=== PATIENT | female | born 1945 ===

== ENCOUNTER 2024-07-18 07:30 | Inpatient (IN) | payer MEDICARE, OTHER ==
[~2024-07-18] VITALS: Ht 177.8 cm; Wt 87.5 kg
[2024-07-18 15:40] VITALS: BP 138/66
[2024-07-18 16:16] VITALS: BP 138/66
[2024-07-18 21:45] VITALS: BP 117/70; TEMP 98.3; O2SAT 95
[2024-07-19] MEDS ORDERED: ONDANSETRON HCL 4 MG TABLET PO PRN ×2 (01:30→04:15)
[2024-07-19] MEDS ORDERED: MAG HYDROX/AL HYDROX/SIMETH 30 ML LIQUID UDC PO PRN ×2 (01:30→02:30)
[2024-07-19] MEDS ORDERED: MELATONIN 3 MG TABLET PO PRN (01:30)
[2024-07-19] MEDS ORDERED: MAG355OR18 PO (02:26)
[2024-07-19] MEDS ORDERED: AMIO100T4 PO (02:27)
[2024-07-19] MEDS ORDERED: APIX5TAB PO (02:28)
[2024-07-19] MEDS ORDERED: DULO40CA2 PO (02:30)
[2024-07-19] MEDS ORDERED: FERR220S16 PO (02:31)
[2024-07-19] MEDS ORDERED: GABA300S PO (02:33)
[2024-07-19] MEDS ORDERED: MELA1TAB53 PO (02:34)
[2024-07-19] MEDS ORDERED: ONDA-104 PO (02:35)
[2024-07-19] MEDS ORDERED: PANT40TA49 PO (02:37)
[2024-07-19] MEDS ORDERED: PREG300C PO (02:39)
[2024-07-19] MEDS ORDERED: ROPI4TAB6 PO (02:40)
[2024-07-19] MEDS ORDERED: MAG HYDROX/AL HYDROX/SIMETH 30 ML LIQUID UDC PO SCH (04:15)
[2024-07-19] MEDS ORDERED: Medication Not On Formulary EA (Ferrous Sulfate 325 MG) PO SCH (06:00)
[2024-07-19] MEDS: PANTOPRAZOLE SODIUM 40 MG TABLET.DR PO SCH (06:38)
[2024-07-19 06:39] VITALS: BP 119/81; TEMP 97.8; O2SAT 94
[2024-07-19 07:36] LABS: BASOPHILS # (AUTO) 0.1 K/UL (0.0-0.2); BASOPHILS % (AUTO) 1.1 % (0.0-2.0); EOSINOPHILS # (AUTO) 0.1 K/uL (0.0-0.7); EOSINOPHILS % (AUTO) 2.5 % (0.0-7.0); HEMATOCRIT 36.4 % (31.2-41.9); HEMOGLOBIN 12.2 g/dL (10.9-14.3); LYMPHOCYTES # (AUTO) 1.1 K/uL (0.8-4.8); LYMPHOCYTES % (AUTO) 21.4 % (20.5-51.5); MEAN CORPUSCULAR HEMOGLOBIN 29.5 uug (24.7-32.8); MEAN CORPUSCULAR HGB CONC 33 g/dL (32.3-35.6); MEAN CORPUSCULAR VOLUME 88.2 fL (75.5-95.3); MONOCYTES # (AUTO) 0.6 K/uL (0.1-1.30); MONOCYTES % (AUTO) 13.1 % (0.0-11.0); NEUTROPHILS # (AUTO) 3.1 K/uL (1.8-8.9); NEUTROPHILS % (AUTO) 61.9 % (38.5-71.5); PLATELET COUNT (AUTO) 142 K/uL (179-408); RED BLOOD CELL COUNT(AUTO) 4.13 MIL/uL (3.63-4.92); RED CELL DISTRIBUTION WIDTH 16.7 % (12.3-17.7)
[2024-07-19 07:50] LABS: DIFFERENTIAL COMMENT 1
[2024-07-19 07:58] LABS: ALANINE AMINOTRANSFERASE 10 U/L (14-59); ALKALINE PHOSPHATASE 113 U/L (50-136); ASPARTATE AMINOTRANSFERASE 5 U/L (15-37); BILIRUBIN,DIRECT 0.1 mg/dL (0.0-0.2); BILIRUBIN,TOTAL 0.5 mg/dL (0.2-1.0); CARBON DIOXIDE 29 mmol/L (21-32); CHLORIDE 107 mmol/L (98-107); CREATININE 1.1 mg/dL (0.6-1.3); GLUCOSE 104 mg/dL (74-106); MAGNESIUM 2.2 mg/dL (1.8-2.4); PHOSPHOROUS 4.1 mg/dL (2.5-4.9); POTASSIUM 4.9 mmol/L (3.5-5.1); SODIUM SERUM 144 mmol/L (136-145); TOTAL PROTEIN, SERUM 6.5 g/dL (6.4-8.2); UREA NITROGEN, BLOOD 16 mg/dL (7-18)
[2024-07-19 08:06] LABS: CALCIUM 9.1 mg/dL (8.5-10.1)
[2024-07-19 08:17] VITALS: BP 105/58; TEMP 97.6; O2SAT 97
[2024-07-19] MEDS ORDERED: PANTOPRAZOLE SODIUM 40 MG TABLET.DR PO SCH (09:00)
[2024-07-19] MEDS ORDERED: DULOXETINE HCL 90 MG PO SCH (09:00)
[2024-07-19] MEDS ORDERED: ROPINIROLE HCL 4 MG PO SCH (09:00)
[2024-07-19] MEDS ORDERED: ropiniROLE 1 MG TABLET PO SCH ×3 (09:00)
[2024-07-19] MEDS ORDERED: APIXABAN 5 MG TABLET PO SCH (09:00)
[2024-07-19] MEDS: DULOXETINE 30 MG CAPSULE.DR PO SCH (09:10)
[2024-07-19] MEDS: PREGABALIN 100 MG CAPSULE PO SCH (09:13)
[2024-07-19] MEDS: AMIODARONE HCL 200 MG TABLET PO SCH (09:13)
[2024-07-19] MEDS: APIXABAN 2.5 MG TABLET PO SCH (09:17)
[2024-07-19] MEDS ORDERED: TAPE50TA2 PO (09:44)
[2024-07-19] MEDS ORDERED: ROPI1TAB6 PO (09:44)
[2024-07-19] MEDS ORDERED: METO-356 PO (09:44)
[2024-07-19] MEDS ORDERED: MULT-594 PO (09:44)
[2024-07-19] MEDS ORDERED: MODA200T44 PO (09:44)
[2024-07-19] MEDS: ropiniROLE 1 MG TABLET PO SCH ×2 (10:12→21:24)
[2024-07-19 16:16] VITALS: BP 131/86; TEMP 97.6; O2SAT 98
[2024-07-19] MEDS ORDERED: Medication Not On Formulary EA (Melatonin 1 TAB) PO SCH (18:00)
[2024-07-19 21:00] VITALS: BP 134/66; TEMP 97.8; O2SAT 95
[2024-07-19] MEDS ORDERED: PREGABALIN 100 MG CAPSULE PO SCH (21:00)
[2024-07-19] MEDS ORDERED: GABAPENTIN 100 MG CAPSULE PO SCH (21:00)
[2024-07-19] MEDS: FERROUS SULFATE 325 MG TABEC PO SCH (21:24)
[2024-07-19] MEDS: GABAPENTIN 100 MG CAPSULE PO SCH (21:25)
[2024-07-20 06:56] VITALS: BP 136/67; TEMP 97.5; O2SAT 96
[2024-07-20 08:00] VITALS: BP 106/63; TEMP 97.7; O2SAT 96
[2024-07-20] MEDS ORDERED: ropiniROLE 1 MG TABLET PO SCH (09:00)
[2024-07-20 15:55] VITALS: BP 107/64; TEMP 97.2; O2SAT 97
[2024-07-20] MEDS: HYDROCODONE/APAP 5-325MG TABLET PO PRN (17:21)
[2024-07-20 21:00] VITALS: BP 120/67; TEMP 97.4; O2SAT 96
[2024-07-21 06:43] VITALS: BP 116/77; TEMP 97.5; O2SAT 96
[2024-07-21 08:00] VITALS: BP 117/62; TEMP 97.7; O2SAT 96
[2024-07-21 16:00] VITALS: BP 128/80; TEMP 97.9; O2SAT 96
[2024-07-21 20:36] VITALS: BP 111/66; TEMP 97.5; O2SAT 95
[2024-07-22 05:49] VITALS: BP 142/82; TEMP 97.8; O2SAT 98
[2024-07-22 09:00] VITALS: BP 136/70; TEMP 97.7
[2024-07-22] MEDS ORDERED: CYAN100096 PO (12:08)
[2024-07-22 18:12] VITALS: BP 106/58; TEMP 98.1; O2SAT 98
[2024-07-22 20:00] VITALS: BP 124/75; TEMP 97.7; O2SAT 95
[2024-07-23 05:38] VITALS: BP 114/52; TEMP 97.9; O2SAT 95
[2024-07-23 08:00] VITALS: BP 116/71; TEMP 98; O2SAT 95
[2024-07-23] MEDS: CYANOCOBALAMIN 1,000 MCG TABLET PO SCH (08:34)
[2024-07-23] MEDS: MULTIVITAMINS,THERAPEUTIC TABLET PO SCH (08:34)
[2024-07-23] MEDS: METOPROLOL SUCCINATE XL 25 MG TAB.SR.24H PO SCH (08:39)
[2024-07-23] MEDS: MODAFINIL 100 MG TABLET PO SCH (08:39)
[2024-07-23 21:19] VITALS: BP 110/69; TEMP 98.1; O2SAT 96
[2024-07-24 07:16] VITALS: BP 117/69; TEMP 97.8; O2SAT 98
[2024-07-24 16:00] VITALS: BP 114/59; TEMP 97.9; O2SAT 97
[2024-07-24 20:00] VITALS: BP 105/60; TEMP 98; O2SAT 95
[2024-07-25 05:00] VITALS: BP 149/80; TEMP 97.9; O2SAT 98
[2024-07-25 08:40] VITALS: BP 104/64; TEMP 97.2
[2024-07-25] MEDS: DOCUSATE SODIUM 100 MG CAPSULE PO SCH (10:05)
[2024-07-25 15:26] VITALS: BP 140/77; TEMP 98.1; O2SAT 98
[2024-07-25 20:05] VITALS: BP 111/59; TEMP 97.3; O2SAT 95
[2024-07-26 05:22] VITALS: BP 117/69; TEMP 97.9; O2SAT 95
[2024-07-26 07:08] LABS: BASOPHILS # (AUTO) 0.1 K/UL (0.0-0.2); BASOPHILS % (AUTO) 1.2 % (0.0-2.0); EOSINOPHILS # (AUTO) 0.1 K/uL (0.0-0.7); EOSINOPHILS % (AUTO) 2.2 % (0.0-7.0); HEMATOCRIT 36.2 % (31.2-41.9); HEMOGLOBIN 12.1 g/dL (10.9-14.3); LYMPHOCYTES % (AUTO) 23.5 % (20.5-51.5); MEAN CORPUSCULAR HEMOGLOBIN 29.4 uug (24.7-32.8); MEAN CORPUSCULAR HGB CONC 33 g/dL (32.3-35.6); MEAN CORPUSCULAR VOLUME 87.9 fL (75.5-95.3); MONOCYTES # (AUTO) 0.4 K/uL (0.1-1.30); MONOCYTES % (AUTO) 9.3 % (0.0-11.0); NEUTROPHILS # (AUTO) 2.8 K/uL (1.8-8.9); NEUTROPHILS % (AUTO) 63.8 % (38.5-71.5); PLATELET COUNT (AUTO) 151 K/uL (179-408); RED BLOOD CELL COUNT(AUTO) 4.11 MIL/uL (3.63-4.92); RED CELL DISTRIBUTION WIDTH 16.1 % (12.3-17.7); WHITE BLOOD COUNT (AUTO) 4.4 K/uL (3.8-11.8)
[2024-07-26 07:15] LABS: DIFFERENTIAL COMMENT 1
[2024-07-26 07:18] LABS: CALCIUM 8.8 mg/dL (8.5-10.1); CARBON DIOXIDE 32 mmol/L (21-32); CHLORIDE 108 mmol/L (98-107); CREATININE 1.1 mg/dL (0.6-1.3); GLUCOSE 98 mg/dL (74-106); POTASSIUM 4.3 mmol/L (3.5-5.1); SODIUM SERUM 144 mmol/L (136-145); UREA NITROGEN, BLOOD 17 mg/dL (7-18)
[2024-07-26 08:27] VITALS: BP 117/70; TEMP 97.8; O2SAT 96
[2024-07-26 18:50] VITALS: BP 111/52; TEMP 97.7; O2SAT 95
[2024-07-26 20:10] VITALS: BP 151/76; TEMP 97.1; O2SAT 96
[2024-07-27 05:04] VITALS: BP 107/62; TEMP 97.4; O2SAT 97
[2024-07-27 08:49] VITALS: BP 131/83; TEMP 97.5; O2SAT 99
[2024-07-27 09:36] LABS: BASOPHILS # (AUTO) 0.1 K/UL (0.0-0.2); BASOPHILS % (AUTO) 1.1 % (0.0-2.0); EOSINOPHILS # (AUTO) 0.1 K/uL (0.0-0.7); EOSINOPHILS % (AUTO) 1.9 % (0.0-7.0); HEMATOCRIT 38.2 % (31.2-41.9); HEMOGLOBIN 12.4 g/dL (10.9-14.3); LYMPHOCYTES # (AUTO) 1.4 K/uL (0.8-4.8); LYMPHOCYTES % (AUTO) 22.3 % (20.5-51.5); MEAN CORPUSCULAR HEMOGLOBIN 28.8 uug (24.7-32.8); MEAN CORPUSCULAR HGB CONC 33 g/dL (32.3-35.6); MEAN CORPUSCULAR VOLUME 88.9 fL (75.5-95.3); MONOCYTES # (AUTO) 0.5 K/uL (0.1-1.30); MONOCYTES % (AUTO) 7.9 % (0.0-11.0); NEUTROPHILS % (AUTO) 66.8 % (38.5-71.5); PLATELET COUNT (AUTO) 196 K/uL (179-408); RED CELL DISTRIBUTION WIDTH 16.4 % (12.3-17.7); WHITE BLOOD COUNT (AUTO) 6.1 K/uL (3.8-11.8)
[2024-07-27 09:46] LABS: CALCIUM 8.6 mg/dL (8.5-10.1); CARBON DIOXIDE 27 mmol/L (21-32); CHLORIDE 103 mmol/L (98-107); CREATININE 1.3 mg/dL (0.6-1.3); GLUCOSE 104 mg/dL (74-106); POTASSIUM 4.1 mmol/L (3.5-5.1); SODIUM SERUM 141 mmol/L (136-145); UREA NITROGEN, BLOOD 22 mg/dL (7-18)
[2024-07-27 09:54] LABS: ALANINE AMINOTRANSFERASE 15 U/L (14-59); ALBUMIN 3.5 g/dL (3.4-5.0); ALKALINE PHOSPHATASE 125 U/L (50-136); ASPARTATE AMINOTRANSFERASE 11 U/L (15-37); BILIRUBIN,TOTAL 0.7 mg/dL (0.2-1.0); MAGNESIUM 2.1 mg/dL (1.8-2.4); PHOSPHOROUS 3.7 mg/dL (2.5-4.9); TOTAL PROTEIN, SERUM 6.9 g/dL (6.4-8.2)
[2024-07-27 09:56] LABS: DIFFERENTIAL COMMENT 1
[2024-07-27 18:13] VITALS: BP 105/60; TEMP 97.6; O2SAT 97
[2024-07-27 19:59] VITALS: BP 106/53; TEMP 97.9; O2SAT 98
[2024-07-28 06:06] VITALS: BP 111/63; TEMP 98; O2SAT 96
[2024-07-28 08:00] VITALS: BP 118/59; TEMP 97.5; O2SAT 95
[2024-07-28 16:08] VITALS: BP_SYST 118; BP_SYST 134; BP_DIAS 50; BP_DIAS 59; BP_DIAS 74; TEMP 97.5; TEMP 97.8; O2SAT 95; O2SAT 97; O2SAT 98
[2024-07-28 20:22] VITALS: BP 124/62; TEMP 97.9; O2SAT 98
[2024-07-29 06:39] VITALS: BP 148/56; TEMP 97.9; O2SAT 95
[2024-07-29 08:00] VITALS: BP 144/90; TEMP 97; O2SAT 97
[2024-07-29 09:04] VITALS: BP 144/90
== END 2024-07-29 14:15 | disposition home health service (06) | DRG 71 ==
PROVIDERS: ADMIT Physical Medicine & Rehabilitation Pain Medicine; ATTEND Physical Medicine & Rehabilitation Pain Medicine
DX: G93.41 Metabolic encephalopathy (principal); N39.0 Urinary tract infection, site not specified; B96.20 Unspecified Escherichia coli [E. coli] as the cause of diseases classified elsewhere; G25.81 Restless legs syndrome; G60.0 Hereditary motor and sensory neuropathy; G89.4 Chronic pain syndrome; R07.89 Other chest pain; G47.33 Obstructive sleep apnea (adult) (pediatric); I48.91 Unspecified atrial fibrillation; Z88.2 Allergy status to sulfonamides; Z88.8 Allergy status to other drugs, medicaments and biological substances; G47.61 Periodic limb movement disorder; Z79.01 Long term (current) use of anticoagulants; Z96.89 Presence of other specified functional implants; R26.81 Unsteadiness on feet; R27.0 Ataxia, unspecified
CPT/HCPCS: 36415; 83735; 84100; 84484; 85025; 93005; 97535-GO-CO